=== PATIENT | female | born 1975 ===

== ENCOUNTER 2019-06-19 06:14 | Outpatient (CLI) | payer OTHER ==
[2019-06-19] MEDS ORDERED: SYNTHROID50 MCG PO (10:27)
== END 2019-06-19 06:56 | disposition home or self-care (01) ==
LOC: LAB 06:14
DX: I49.8 Other specified cardiac arrhythmias (principal); Z76.89 Persons encountering health services in other specified circumstances; D64.89 Other specified anemias; D68.8 Other specified coagulation defects; N39.0 Urinary tract infection, site not specified; Z22.322 Carrier or suspected carrier of Methicillin resistant Staphylococcus aureus; E55.9 Vitamin D deficiency, unspecified; M85.88 Other specified disorders of bone density and structure, other site; E88.89 Other specified metabolic disorders; M81.8 Other osteoporosis without current pathological fracture; E21.2 Other hyperparathyroidism; E56.1 Deficiency of vitamin K

== ENCOUNTER 2019-07-07 05:40 | Day surgery (SDC) | payer OTHER ==
[~2019-07-07 05:40] MED LIST: SYNTHROID50 MCG PO
== END 2019-07-07 14:12 | disposition home or self-care (01) ==
LOC: CIR.AMB 05:40 → ADM 15:30 → CIR.AMB 15:30
DX: M75.122 Complete rotator cuff tear or rupture of left shoulder, not specified as traumatic (principal); M19.012 Primary osteoarthritis, left shoulder; M75.22 Bicipital tendinitis, left shoulder